=== PATIENT | female | born 1980 | race Caucasian/White ===

== ENCOUNTER → 2016-12-12 | Outpatient (CLI) | payer OTHER ==
[~2016-12-12] MED LIST: GADOBUTROL 10 ML VIAL IVP ONE
== END ==
LOC: FIMAGING 11:38
PROVIDERS: ATTEND Internal Medicine Hematology & Oncology
DX: H83.92 Unspecified disease of left inner ear (principal); J34.1 Cyst and mucocele of nose and nasal sinus; C50.411 Malignant neoplasm of upper-outer quadrant of right female breast; Z15.01 Genetic susceptibility to malignant neoplasm of breast
CPT/HCPCS: A9585

== ENCOUNTER → 2016-12-16 | Outpatient (CLI) | payer OTHER | LOC: FIMAGING 12:03 | PROVIDERS: ATTEND Internal Medicine Hematology & Oncology | CPT/HCPCS: A9585 ==

== ENCOUNTER → 2017-12-26 | Outpatient (CLI) | payer OTHER | LOC: FIMAGING 07:39 | PROVIDERS: ATTEND Internal Medicine Hematology & Oncology | DX: R93.5 Abnormal findings on diagnostic imaging of other abdominal regions, including retroperitoneum (principal); D25.1 Intramural leiomyoma of uterus; C50.411 Malignant neoplasm of upper-outer quadrant of right female breast; Z15.01 Genetic susceptibility to malignant neoplasm of breast | CPT/HCPCS: A9585 ==

== ENCOUNTER → 2017-12-27 | Outpatient (CLI) | payer OTHER | LOC: FIMAGING 12:38 | PROVIDERS: ATTEND Internal Medicine Hematology & Oncology | DX: D33.3 Benign neoplasm of cranial nerves (principal); Z15.09 Genetic susceptibility to other malignant neoplasm | CPT/HCPCS: A9585 ==

== ENCOUNTER → 2018-01-05 | Outpatient (CLI) | payer OTHER | LOC: FIMAGING 08:33 | PROVIDERS: ATTEND Internal Medicine Hematology & Oncology | DX: R19.07 Generalized intra-abdominal and pelvic swelling, mass and lump (principal); C50.411 Malignant neoplasm of upper-outer quadrant of right female breast ==

== ENCOUNTER → 2018-01-19 | Outpatient (CLI) | payer OTHER ==
[~2018-01-19] MED LIST changes: -GADOBUTROL 10 ML VIAL IVP ONE; +LIDOCAINE 1% 300 MG/30 ML SDV ONE
== END ==
LOC: FIMAGING 10:45
PROVIDERS: ATTEND Internal Medicine Hematology & Oncology
PROC: 0WBH3ZX Excision of Retroperitoneum, Percutaneous Approach, Diagnostic (ICD-10-PCS; principal; 2018-01-19)
DX: N80.9 Endometriosis, unspecified (principal); C50.411 Malignant neoplasm of upper-outer quadrant of right female breast